=== PATIENT | male | born 1965 | race Caucasian/White ===

== ENCOUNTER → 2017-06-08 | Outpatient (CLI) | payer BC ==
--- NOTE | 2017-06-08 18:10 | DIAGNOSTIC IMAGING REPORT ---
LEFT LOWER EXTREMITY VENOUS DOPPLER CLINICAL HISTORY: LEFT KNEE/CALF PAIN AND SWELLING COMPARISON STUDY: No previous studies for comparison. TECHNIQUE: Sonography of the deep venous system of the left lower extremity was performed. Compression and augmentation were evaluated. FINDINGS: The common femoral, superficial femoral and popliteal veins were compressible. Augmentation was normal. Flow was shown within the deep calf vessels. Note was made of a elongated complex fluid collection of the superior medial aspect the left calf that measured 15.1 x 3.4 x 2.6 cm. This contained no color flow. IMPRESSION: 1. No evidence of deep venous thrombus within the left lower extremity. 2. Large elongated complex fluid collection of the medial left calf which measures 15.1 x 3.4 x 2.6 cm. While nonspecific, a hematoma is favored. Electronically signed by: Gilberto Tse M.D. 06/08/2017 6:08 PM Dictated Date/Time: 06/08/2017 6:07 PM
== END | disposition home or self-care (01) ==
LOC: C.ULTR 17:01
DX: M79.662 Pain in left lower leg (principal)